=== PATIENT | male | born 1960 | race Caucasian/White ===

== ENCOUNTER → 2017-10-11 | Day surgery (SDC) | payer OTHER ==
[2017-09-12 15:05] VITALS: Ht 177.8 cm; Wt 88.6 kg
--- NOTE | 2017-09-16 15:54 | DIAGNOSTIC IMAGING REPORT ---
CHEST 2 VIEWS ROUTINE CLINICAL HISTORY: K40.90 Right inguinal hernia, preoperative chest. COMPARISON STUDY: No previous studies for comparison. FINDINGS: The cardiac and mediastinal contours are normal. There is no evidence of focal pulmonary consolidation. There is no evidence of failure. No pleural effusions are visualized.[ IMPRESSION: No active disease in the chest. Electronically signed by: Jared Li M.D. 09/16/2017 3:53 PM Dictated Date/Time: 09/16/2017 3:52 PM
[2017-09-16 16:34] LABS: BASO % 0.3 %; BASO ABS # 0.02 K/uL (0-0.2); EOS % 2.1 %; EOS ABS # 0.16 K/uL (0-0.5); HEMATOCRIT 42.6 % (42-52); HEMOGLOBIN 15.4 g/dL (14.0-18.0); IG# 0.03 K/uL (0.00-0.02); LYMPH % 27.9 %; LYMPH ABS # 2.11 K/uL (1.2-3.4); MEAN CELL VOLUME 88.6 fL (80-100); MEAN CORPUSCULAR HGB CONC 36.2 g/dl (32-36); MEAN PLATELET VOLUME 9.7 fL (7.4-10.4); MONO % 6.9 %; MONO ABS # 0.52 K/uL (0.11-0.59); NEUT % 62.4 %; NEUT ABS # 4.72 K/uL (1.4-6.5); PLATELET COUNT 221 K/uL (130-400); RED CELL DISTRIBUTION WIDTH CV 12.3 % (11.5-14.5); RED CELL DISTRIBUTION WIDTH SD 39.1 fL (36.4-46.3); WHITE BLOOD COUNT 7.56 K/uL (4.8-10.8)
[2017-09-16 17:00] LABS: CALCIUM 9.4 mg/dl (8.5-10.1); CREATININE 0.95 mg/dl (0.60-1.40); POTASSIUM 3.7 mmol/L (3.5-5.1)
[~2017-10-11] VITALS: Ht 177.8 cm; Wt 88.6 kg
[~2017-10-11] MED LIST: ATROPINE SULFATE 0.1 MG/ML 5ML SYR IV PRN; BACITRACIN 50000 UNIT VIAL ONE; BUPIVACAINE 0.5 % 5 MG/1 ML MPF 30ML VIAL ONE; DEXAMETHASONE SOD INJ 4 MG/ML VIAL ONE; EpHEDrine SULFATE INJ 50 MG/ML AMP IV PRN; FENTANYL CITRATE INJ 50 MCG/1 ML 2 ML VIAL ONE; LACTATED RINGER'S 1000ML 1,000 ML IV SCH; LIDOCAINE HCL 2% 2 ML VIAL (20MG/ML) ONE; MIDAZOLAM HCL 1 MG/ML 2ML VIAL ONE; MoRPHine SULFATE 2 MG/ML CARP IV PRN; ONDANSETRON INJ 2 MG/ML 2 ML VIAL IV PRN; ONDANSETRON INJ 2 MG/ML 2 ML VIAL ONE; OXYC-57 PO; OXYCODONE/ACETAMINOPHEN 5-325 TAB PO PRN; PROPOFOL IV EMULSION 10 MG/ML 20 ML VIAL IV ONE; SODIUM CHLORIDE 0.9% INJ 10 ML VIAL ONE
--- NOTE | 2017-10-11 07:00 | History and Physical: Surg Cnt ---
History & Physical Date Oct 11, 2017. Chief Complaint pain right groin History of Present Illness The patient is a 56 year old male with complaints of pain right groin doc hernia seen 09/09/2017 in office and scheduled repair h and p 1 day over allowed time period Additional History Hepatic Disease: No Endocrine Disorder: No Kidney Disease: No Hypertension: No Heart Disease: No Bleeding Tendencies: No Infectious Diseases: No Allergies Coded Allergies: No Known Allergies (Verified , 09/12/17) Home Medications No Active Prescriptions or Reported Meds Physical Examination Skin: warm/dry, no rash Eyes: normal inspection, EOMI, sclerae normal ENT: pharynx normal Neck: supple, no adenopathy, trachea midline Respiratory/Chest: lungs clear, normal breath sounds, no respiratory distress Cardiovascular: regular rate, rhythm, no edema, no murmur Abdomen / GI: non tender, + pertinent finding (right ing hernia easily appreciated testes normal) Extremities: normal inspection, normal range of motion Diagnosis right symp inguinal hernia Plan of Treatment open right ing hernia repair with or without mesh
--- NOTE | 2017-10-11 08:13 | Discharge Instructions ---
Discharge Instructions Date of Service Oct 11, 2017. Visit Reason for Visit: Right Inguinal Hernia K40.90 Discharge Discharge Diagnosis / Problem: hernia repair Discharge Goals Goal(s): Decrease discomfort Activity Recommendations Activity Limitations: as noted below Lifting Limitations: no more than 10 pounds Shower/Bathe: tomorrow Driving or Machine Use: resume 3 days after discharge Anesthesia . Post Anesthesia Instructions: If you have had General Anesthesia or IV Sedation: * Do not drive today. * Resume driving when surgeon permits. * Do not make important decisions or sign legal documents today. * Call surgeon for: 1. Temperature elevations greater than 101 degrees F. 2. Uncontrollable pain. 3. Excessive bleeding. 4. Persistent nausea and vomiting. 5. Medication intolerance (nausea, vomiting or rash). * For nausea and vomiting use only clear liquids such as: tea, soda, bouillon until nausea subsides, then gradually increase diet as tolerated. * If you have any concerns or questions, call your surgeon's office. If physician is unavailable and it is an emergency, call 911 or go to the nearest emergency room. . Instructions / Follow-Up Instructions / Follow-Up Dr. Marc in 1 week, call the office [phone] if you have any questions Ice right groin off and on alternating every 20 minutes until bedtime Diet Recommendations Recommended Home Diet: no limitations Pending Studies Studies pending at discharge: no Medical Emergencies . Who to Call and When: Medical Emergencies: If at any time you feel your situation is an emergency, please call 911 immediately. . Non-Emergent Contact Non-Emergency issues call your: Surgeon Call Non-Emergent contact if: you have a fever, temperature is above 101.5, your pain is not controlled, wound has increased redness . . "Provider Documentation" section prepared by Enoc Willis. .
--- NOTE | 2017-10-11 09:14 | [facility] Post Operative Brief Note ---
Immediate Operative Summary Operative Date Oct 11, 2017. Pre-Operative Diagnosis Right Inguinal Hernia Post-Operative Diagnosis same as preop right ind and lipoma cord Procedure(s) Performed Open Right Indirect Inguinal Hernia Repair (Mk) and excision lipoma cord Surgeon Dr. Marc Inspector Handbag Frames Surgeon(s) MICHAEL Bui Estimated Blood Loss 5ml Findings See Below indirect hernia and lipoma cord Specimens A: lipoma of the cord Anesthesia Type General Complication(s) none
--- NOTE | 2017-10-11 09:33 | OPERATIVE REPORT ---
DATE OF OPERATION: 10/11/2017 SURGEON: Torres Marc MD. SENIOR MECHANICAL PROJECT ENGINEER: Enoc Willis PA-C. PREOPERATIVE DIAGNOSIS: Symptomatic right inguinal hernia. POSTOPERATIVE DIAGNOSIS: Right indirect inguinal hernia and lipoma of the cord. PROCEDURE: Open repair, right indirect hernia and excision lipoma of the cord ( Bassini repair). SUMMARY: The patient was brought into the operating room theater. The right lower quadrant was prepped with Betadine scrubbing solution and properly draped. Systemic antibiotics was given. We have seen the patient in the preoperative area and marked the area to be shaved and once he got into the operating room, we noticed he had some skin irritation right in the groin crease near to where we were making the incision and therefore we modified the incision to stay away from that. We used 0.5% Marcaine without epinephrine to infiltrate 2 fingerbreadths medial anterior superior iliac crest and an incision was made curvilinear away from the area of irritation. Subcutaneous tissue was divided, some cautery was used for some bleeding vessels. There were no large venous plexus to be ligated. At this point, we dissected down to the external oblique, followed that all the way to the external ring. At the external ring we could feel some incarcerated tissue. Then more local was used underneath the external oblique, and this was opened proximally and distally all the way to the external ring and could identify a large fat stuck into the external ring. We elevated the cord and its structures over a Desi drain and then we were able to identify that the direct area was fairly strong, but we could see some large lipomatous tissue going all the way down to the external ring that has come down from the indirect area. We dissected this out away from the cord and this was about 10 cm long, it was easily reduced and returned it all retroperitoneally rather than excise it. We then identified the lipoma of the cord also and we resected this. The only defect the patient had was an indirect hernia in the indirect internal ring. There was a small indirect hernia, but just elevated from the peritoneum, we did not do anything with that. We then elected to use a Bassini repair using 2-0 silk to approximate the shelving portion angling to conjoined tendon all the way to reconstruct the internal ring that could only accommodate the tip of a hemostat. We checked the area for hemostasis and appeared satisfactory. More Marcaine was used around the operative field. The nerve was avoided throughout the procedure. It seemed to be superior to the internal ring away from where we were working. At this point, we then closed the external oblique over the cord with 3-0 interrupted silk suture, 2-0 Dexon subcutaneously, candice for skin edges. Dressing was applied. The procedure was tolerated well by the patient. Estimated blood loss approximately 5 mL. The patient was taken to recovery room in good condition. I attest to the content of the Intraoperative Record and any orders documented therein. Any exception s are noted below.
[2017-10-11] MEDS: FENTANYL CITRATE INJ 50 MCG/1 ML 2 ML VIAL IV PRN ×2 (09:49→10:04)
--- NOTE | 2017-10-11 10:52 | Anesthesiology Progress Note ---
Anesthesia Post Op Note Date & Time Oct 11, 2017 at 10:52 Vital Signs Pain Intensity: 5 Vital Signs Past 12 Hours Date Time Temp Pulse Resp B/P (MAP) Pulse Ox O2 Delivery O2 Flow Rate FiO2 10/11/17 10:25 36.4 80 14 148/82 (104) 96 Room Air 10/11/17 10:11 79 16 10/11/17 10:11 79 16 132/77 96 10/11/17 10:09 36.3 76 20 132/77 95 Room Air 10/11/17 10:06 74 11 97 10/11/17 10:06 75 11 10/11/17 10:05 122/73 10/11/17 10:01 76 14 10/11/17 10:01 76 14 95 10/11/17 10:00 128/89 10/11/17 09:56 80 13 10/11/17 09:56 82 13 94 10/11/17 09:55 128/81 10/11/17 09:51 78 14 127/90 94 10/11/17 09:51 79 14 10/11/17 09:46 79 16 96 10/11/17 09:46 79 16 10/11/17 09:45 132/66 10/11/17 09:41 71 15 96 10/11/17 09:41 70 15 10/11/17 09:40 132/90 10/11/17 09:36 75 15 10/11/17 09:36 74 15 130/82 99 10/11/17 09:31 73 10/11/17 09:31 36.4 72 12 140/97 98 Mask 6 10/11/17 09:31 73 140/97 97 10/11/17 07:02 36.5 78 18 139/86 (103) 98 Room Air Notes Mental Status: alert / awake / arousable, participated in evaluation Pt Amnestic to Procedure: Yes Nausea / Vomiting: adequately controlled Pain: adequately controlled Airway Patency, RR, SpO2: stable & adequate BP & HR: stable & adequate Hydration State: stable & adequate Anesthetic Complications: no major complications apparent
[2017-10-11 11:03] VITALS: BP 138/86; PULSE 75; TEMP 36.5; O2SAT 96
== END | disposition home or self-care (01) ==
LOC: X.SURG 06:49
PROVIDERS: ATTEND Surgery
DX: K40.90 Unilateral inguinal hernia, without obstruction or gangrene, not specified as recurrent (principal); D17.6 Benign lipomatous neoplasm of spermatic cord